=== PATIENT | female | born 1970 | race Caucasian/White ===

== ENCOUNTER 2019-05-21 18:17 | Emergency (ER) | payer SELFPAY ==
[~2019-05-21] VITALS: Ht 162.5 cm; Wt 68.0 kg
[2019-05-21] MEDS ORDERED: MEDROL DOSEPAK4 MG PO (20:42)
[2019-05-21] MEDS ORDERED: NAPROSYN500 MG PO (20:42)
[2019-05-21] MEDS ORDERED: METHOCARBAMOL500 M1 PO (20:42)
== END 2019-05-21 20:46 | disposition home or self-care (01) ==
LOC: ED 18:17
DX: S16.1XXA Strain of muscle, fascia and tendon at neck level, initial encounter (principal); S29.011A Strain of muscle and tendon of front wall of thorax, initial encounter; S46.912A Strain of unspecified muscle, fascia and tendon at shoulder and upper arm level, left arm, initial encounter; Z91.040 Latex allergy status; W18.39XA Other fall on same level, initial encounter; Y93.89 Activity, other specified; Y92.89 Other specified places as the place of occurrence of the external cause; Y99.8 Other external cause status

== ENCOUNTER 2019-06-19 18:06 | Inpatient (IN) | payer SELFPAY ==
[~2019-06-19] VITALS: Ht 165.1 cm; Wt 78.6 kg
[2019-06-19 18:06] VITALS: BP 114/79
[~2019-06-19 18:06] MED LIST: MEDROL DOSEPAK4 MG PO; METHOCARBAMOL500 M1 PO; NAPROSYN500 MG PO
[2019-06-19 18:52] LABS: BASO # 0.1 10*3/uL (0.0-0.1); BASO % 0.6 % (0.0-1.0); EOS # 0.2 10*3/uL (0.0-0.4); EOS % 1.8 % (1.0-4.0); HEMATOCRIT 37.8 % (37.0-47.0); HEMOGLOBIN 12.7 g/dl (12.0-16.0); LYMPH % 15.6 % (27.0-41.0); MEAN CELL VOLUME 90.6 fl (81.0-99.0); MEAN CORPUSCULAR HGB 30.5 pg (27.0-31.0); MEAN CORPUSCULAR HGB CONC 33.6 g/dl (33.0-37.0); MEAN PLATELET VOLUME 10.4 fl (9.6-12.3); MONO # 1.2 10*3/uL (0.1-1.0); NEUT # 9.4 10*3/uL (2.3-7.9); NEUT % 72.7 % (47.0-73.0); PLATELET COUNT AUTOMATED 321 10*3/uL (130-400); RED BLOOD COUNT 4.17 10*6/uL (4.10-5.10); RED CELL DISTRI WIDTH 12.8 % (0-14.5)
[2019-06-19 19:02] LABS: BILIRUBIN NEGATIVE (NEGATIVE); BLOOD NEGATIVE (NEGATIVE); CLARITY CLEAR (CLEAR); COLOR YELLOW (YELLOW); GLUCOSE NEGATIVE (NEGATIVE); KETONE NEGATIVE (NEGATIVE); LEUKO ESTERASE NEGATIVE (NEGATIVE); NITRITE NEGATIVE (NEGATIVE); PH 7.5 (5.0-9.0); UROBILINOGEN 0.2 E.U./dl (0.2-1.0)
--- NOTE | 2019-06-19 19:03 | NUR ---
PT MEDICATED PER EMAR. CONT PULSE OX IN PLACE.
[2019-06-19 19:05] LABS: ACT PARTIAL THROMBO TIME 27.3 SECONDS (20.0-32.1); INTERNATIONAL NORM RATIO 0.9 (2.0-3.5)
[2019-06-19 19:07] LABS: ALKALINE PHOSPHATASE 49 U/L (45-117); BUN 8 mg/dl (7-24); CHLORIDE 113 mmol/L (98-107); CREATININE 0.81 mg/dL (0.55-1.02); LIPASE 64 U/L (73-393); POTASSIUM 3.8 mmol/L (3.5-5.1); SGOT/AST 10 IU/L (3-35); SGPT/ALT 17 U/L (12-78); SODIUM 141 mmol/L (136-145); TOTAL PROTEIN 6.7 gm/dL (6.4-8.2)
[2019-06-19 19:39] LABS: WBC 0-2 wbc/hpf (0-5)
[2019-06-19 23:48] VITALS: BP 117/80
[2019-06-20 01:00] VITALS: BP 117/82
--- NOTE | 2019-06-20 01:00 | NUR ---
A 48, admitted to , under the services of LISA Bonner DO with a diagnosis of INTRACTABLE ABDOMINAL PAIN, DIVERTICULITIS. Chief complaint is PAIN. Patient arrived via bed from ER. Monitor applied. Initial assessment completed. Vital signs taken and recorded. LISA BONNER DO notified of admission to the unit. Orders received. See assessment for past medical history, medications and allergies. Patient and/or family oriented to unit. [facility] visitation policy reviewed. Clothing/patient valuable form completed. BETTE ROBERSON
--- NOTE | 2019-06-20 01:30 | NUR ---
RESTORIL GIVEN FOR COMPLAINT OF INSOMNIA. WILL MONITOR EFFECTIVENESS.
[2019-06-20 06:39] LABS: BASO # 0.1 10*3/uL (0.0-0.1); BASO % 0.7 % (0.0-1.0); EOS # 0.3 10*3/uL (0.0-0.4); EOS % 2.3 % (1.0-4.0); HEMATOCRIT 35.4 % (37.0-47.0); HEMOGLOBIN 11.8 g/dl (12.0-16.0); LYMPH # 2.3 10*3/uL (1.3-4.4); LYMPH % 19.4 % (27.0-41.0); MEAN CELL VOLUME 91.9 fl (81.0-99.0); MEAN CORPUSCULAR HGB 30.6 pg (27.0-31.0); MEAN CORPUSCULAR HGB CONC 33.3 g/dl (33.0-37.0); MEAN PLATELET VOLUME 10.5 fl (9.6-12.3); MONO # 1.3 10*3/uL (0.1-1.0); MONO % 10.4 % (3.0-9.0); NEUT # 8.1 10*3/uL (2.3-7.9); NEUT % 66.9 % (47.0-73.0); PLATELET COUNT AUTOMATED 285 10*3/uL (130-400); RED BLOOD COUNT 3.85 10*6/uL (4.10-5.10); RED CELL DISTRI WIDTH 12.9 % (0-14.5)
[2019-06-20 07:12] LABS: BUN 6 mg/dl (7-24); CHLORIDE 113 mmol/L (98-107); CHOLESTEROL 136 mg/dL (<200); CREATININE 0.72 mg/dL (0.55-1.02); HDL CHOLESTEROL 43 mg/dl (40-60); LDL CHOLESTEROL 80 mg/dL (9-159); PHOSPHOROUS 2.6 mg/dL (2.5-4.9); POTASSIUM 3.7 mmol/L (3.5-5.1); SODIUM 142 mmol/L (136-145); TRIGLYCERIDES 66 mg/dl (<150); VLDL CHOLESTEROL 13 mg/dL (6-40)
[2019-06-20 08:00] VITALS: BP 104/70
--- NOTE | 2019-06-20 08:16 | NUR ---
PT STATES THAT SHE IS HAVING ABDOMINAL PAIN RATING TI A 10/10 AND IS REQUESTING SOMETHING FOR THE PAIN. PT IS GIVEN PO NORCO AT THIS TIME. WILL CONTINUE TO MONITOR THE PATIENT, CALL LIGHT WITHIN REACH
[2019-06-20 08:45] LABS: VITAMIN D, 25-HYDROXY 21.9 ng/mL (30-100)
--- NOTE | 2019-06-20 09:00 | NUR ---
Mortar Worker in to talk to patient. Patient states lives at home with alone. There are no steps in the home. Physician: none Pharmacy: none Home health services: none Patient's level of ADLs: INDEPENDENT Patient has working utilities: all working DME: none Follow-up physician's appointment after d/c: will be made by hospitalist nurse director upon discharge with doctor of patient's choice Does patient want to access PORTAL?: no Discharge plan discussed with patient, she lives at home, she states she is independent in adls and ambulation, she will return home when medicallly stable and denies any home needs. JYOTI GAMA
--- NOTE | 2019-06-20 09:33 | NUR ---
PT RE-EVALUATED AT THIS TIME AND IS SLEEPING. WILL CONTINUE TO MONITOR THE PATIENT. CALL LIGHT WITHIN REACH
[2019-06-20 12:00] VITALS: BP 103/62
--- NOTE | 2019-06-20 12:26 | NUR ---
DR. BRUCE IN TO SEE THE PATIENT. STATES HE WANTS HER STARTED ON FLUIDS, WILL PUT IT IN PER DR MENDOZA.
--- NOTE | 2019-06-20 12:36 | NUR ---
PT STATES THE SHE IS HAVING ABDOMINAL PAIN IN LLQ AND IS REQUESTING SOMETHING FOR THE PAIN AND SHE IS ALSO FEELING SICK TO HER STOMACH. SHE RATES THE PAIN A 10/10. PO ZOFRAN AND NORCO ARE GIVEN AT THIS TIME. WILL CONITNUE TO MONITOR THE PATIENT. CAKLL LIGHT WITHIN REACH
--- NOTE | 2019-06-20 14:10 | NUR ---
RE-EVALUATED THE PATIENT AT THE TIME AND SHE STATES THAT HER HEADACHE IS BETTER NOW ALONG WITH HER ARM/SHOULDER PAIN.
--- NOTE | 2019-06-20 14:15 | NUR ---
CALLED DR TOLENTINO PER PT REQUEST OF NASAL SPRAY. HE STATES HE IS GOING TO PUT IN ORDERS.
--- NOTE | 2019-06-20 14:50 | NUR ---
Shift chart check completed.
--- NOTE | 2019-06-20 18:45 | NUR ---
PRN NORCO GIVEN FOR ABDOMINAL PAIN FOR A LEVEL OF 6/10. WILL REASSESS EFFECTIVENESS.
--- NOTE | 2019-06-20 19:45 | NUR ---
PRN NORCO WAS EFFECTIVE. PT HAS NO SIGNS OF DISTRESS NOTED.
[2019-06-20 20:00] VITALS: BP 114/73
--- NOTE | 2019-06-20 22:59 | NUR ---
24 HR chart check completed.
[2019-06-21] VITALS: BP 105/74
--- NOTE | 2019-06-21 01:48 | NUR ---
PRN NORCO GIVEN FOR PT COMPLAINTS OF ABDOMINAL PAIN RATING IT 6/10. CALL LIGHT WITHIN REACH, WILL MONITOR
--- NOTE | 2019-06-21 02:50 | NUR ---
PRN MEDICATINO APPEARS EFFECTIVE, PT SLEEPING
--- NOTE | 2019-06-21 02:53 | NUR ---
24 HR chart check completed.
[2019-06-21 08:00] VITALS: BP 94/72
--- NOTE | 2019-06-21 09:00 | NUR ---
case management visits with patient she states she will return home when medically stable and denies any home needs, case managment will follow
[2019-06-21 12:00] VITALS: BP 96/61
[2019-06-21 16:00] VITALS: BP 105/79
[2019-06-21 20:00] VITALS: BP 109/65
--- NOTE | 2019-06-21 20:08 | NUR ---
PT MEDICATED WITH PRN NORCO FOR C/O HEADACHE RATED A 10/10. WILL CONTINUE TO MONITOR.
[2019-06-22] VITALS: BP 121/66
--- NOTE | 2019-06-22 00:14 | NUR ---
PT MEDICATED WITH PRN ZOFRAN FOR C/O NAUSEA. WILL MONITOR FOR EFFECTIVENESS.
[2019-06-22 08:00] VITALS: BP 116/75
--- NOTE | 2019-06-22 08:30 | NUR ---
PT DENIES PAIN AND STATES SHE FEELS MUCH BETTER AND IS TOLERATING LIQUID DIET.
[2019-06-22] MEDS ORDERED: FLAGYL250 MG PO (08:58)
[2019-06-22] MEDS ORDERED: CIPRO250 MG PO (08:58)
--- NOTE | 2019-06-22 10:32 | NUR ---
PT DISCHARGED HOME AT THIS TIME. FERNANDO AYOUB. PT REFUSED WHEELCHAIR TRANSPORT. VSS.
== END 2019-06-22 10:32 | disposition home or self-care (01) | DRG 392 ==
LOC: ED 18:06 → 5E 23:18 → EDHOLD 23:18 → 4E 06-20 00:34 → 5E 06-20 15:49
PROVIDERS: Internal Medicine; Nurse Practitioner Family; ADMIT Family Medicine
DX: K57.32 Diverticulitis of large intestine without perforation or abscess without bleeding (principal); E44.0 Moderate protein-calorie malnutrition; E87.8 Other disorders of electrolyte and fluid balance, not elsewhere classified; E55.9 Vitamin D deficiency, unspecified; E66.3 Overweight; R73.9 Hyperglycemia, unspecified; Z83.79 Family history of other diseases of the digestive system; Z81.2 Family history of tobacco abuse and dependence; Z68.26 Body mass index [BMI] 26.0-26.9, adult

== ENCOUNTER → 2019-07-05 | Outpatient (CLI) | payer SELFPAY ==
[~2019-07-05] MED LIST changes: +CIPRO250 MG PO; +FLAGYL250 MG PO
== END | disposition home or self-care (01) ==
LOC: RESCLI 01:36
DX: K57.90 Diverticulosis of intestine, part unspecified, without perforation or abscess without bleeding (principal); E55.9 Vitamin D deficiency, unspecified; R73.09 Other abnormal glucose

== ENCOUNTER 2020-01-20 17:59 | Observation (INO) | payer SELFPAY ==
[~2020-01-20] VITALS: Ht 165.1 cm; Wt 81.8 kg
[2020-01-20 18:34] VITALS: BP 125/84
[2020-01-20 19:37] LABS: CLARITY CLEAR (CLEAR); COLOR YELLOW (YELLOW)
[2020-01-20 19:38] LABS: BILIRUBIN NEGATIVE (NEGATIVE); BLOOD NEGATIVE (NEGATIVE); GLUCOSE NEGATIVE (NEGATIVE); KETONE NEGATIVE (NEGATIVE); LEUKO ESTERASE NEGATIVE (NEGATIVE); NITRITE NEGATIVE (NEGATIVE); SPECIFIC GRAVITY 1.015 (1.005-1.030); UROBILINOGEN 0.2 E.U./dl (0.2-1.0)
[2020-01-20 19:46] LABS: EPITHELIAL CELLS 41-50; RBC 0-2 rbc/hpf (0-2); WBC 0-2 wbc/hpf (0-5)
[2020-01-20 19:46] LABS: BASO # 0.1 10*3/uL (0.0-0.1); BASO % 0.5 % (0.0-1.0); EOS # 0.2 10*3/uL (0.0-0.4); EOS % 1.8 % (1.0-4.0); HEMATOCRIT 38.3 % (37.0-47.0); LYMPH # 2.1 10*3/uL (1.3-4.4); MEAN CELL VOLUME 90.3 fl (81.0-99.0); MEAN CORPUSCULAR HGB 30.4 pg (27.0-31.0); MEAN CORPUSCULAR HGB CONC 33.7 g/dl (33.0-37.0); MEAN PLATELET VOLUME 10.1 fl (9.6-12.3); MONO # 1.1 10*3/uL (0.1-1.0); MONO % 8.8 % (3.0-9.0); NEUT # 8.8 10*3/uL (2.3-7.9); NEUT % 71.6 % (47.0-73.0); PLATELET COUNT AUTOMATED 315 10*3/uL (130-400); RED BLOOD COUNT 4.24 10*6/uL (4.10-5.10); RED CELL DISTRI WIDTH 13.1 % (0-14.5); WHITE BLOOD COUNT 12.3 10*3/uL (4.8-10.8)
[2020-01-20 20:02] LABS: ALBUMIN 3.2 gm/dl (3.1-4.5); ALKALINE PHOSPHATASE 58 U/L (45-117); BUN 9 mg/dl (7-24); CHLORIDE 110 mmol/L (98-107); CREATININE 0.83 mg/dL (0.55-1.02); LIPASE 88 U/L (73-393); POTASSIUM 3.8 mmol/L (3.5-5.1); SGOT/AST 12 IU/L (3-35); SGPT/ALT 20 U/L (12-78); SODIUM 139 mmol/L (136-145); TOTAL PROTEIN 6.8 gm/dL (6.4-8.2)
[2020-01-20 21:22] VITALS: BP 136/52
[2020-01-20 23:55] VITALS: BP 116/62
[2020-01-21 00:15] VITALS: BP 123/94
[2020-01-21] MEDS ORDERED: VITAMIN D325 MCG PO (00:59)
[2020-01-21 08:00] VITALS: BP 110/76
[2020-01-21 12:00] VITALS: BP 118/74
[2020-01-21 16:00] VITALS: BP 116/77
[2020-01-21 20:00] VITALS: BP 122/74
[2020-01-22] VITALS: BP 126/75
[2020-01-22 07:35] LABS: BASO # 0.1 10*3/uL (0.0-0.1); BASO % 0.8 % (0.0-1.0); EOS # 0.3 10*3/uL (0.0-0.4); EOS % 3.6 % (1.0-4.0); HEMATOCRIT 38.4 % (37.0-47.0); LYMPH # 1.9 10*3/uL (1.3-4.4); LYMPH % 22.2 % (27.0-41.0); MEAN CELL VOLUME 91.2 fl (81.0-99.0); MEAN CORPUSCULAR HGB 30.2 pg (27.0-31.0); MEAN CORPUSCULAR HGB CONC 33.1 g/dl (33.0-37.0); MEAN PLATELET VOLUME 10.1 fl (9.6-12.3); MONO # 0.9 10*3/uL (0.1-1.0); MONO % 10.4 % (3.0-9.0); NEUT # 5.5 10*3/uL (2.3-7.9); NEUT % 62.8 % (47.0-73.0); PLATELET COUNT AUTOMATED 297 10*3/uL (130-400); RED BLOOD COUNT 4.21 10*6/uL (4.10-5.10); RED CELL DISTRI WIDTH 12.9 % (0-14.5); WHITE BLOOD COUNT 8.7 10*3/uL (4.8-10.8)
[2020-01-22 08:00] VITALS: BP 122/82
[2020-01-22 08:08] LABS: BUN 7 mg/dl (7-24); CHLORIDE 112 mmol/L (98-107); CREATININE 0.65 mg/dL (0.55-1.02); POTASSIUM 3.7 mmol/L (3.5-5.1); SODIUM 142 mmol/L (136-145)
[2020-01-22 12:00] VITALS: BP 126/78
[2020-01-22] MEDS ORDERED: CIPRO500 MG PO (12:08)
[2020-01-22] MEDS ORDERED: FLAGYL500 MG PO (12:08)
== END 2020-01-22 12:23 | disposition home or self-care (01) ==
LOC: ED 17:59 → EDHOLD 23:29 → 5E 23:42
PROVIDERS: Nurse Practitioner Family; Student in an Organized Health Care Education/Training Program; ADMIT Internal Medicine
DX: K57.92 Diverticulitis of intestine, part unspecified, without perforation or abscess without bleeding (principal); D72.829 Elevated white blood cell count, unspecified; R00.1 Bradycardia, unspecified; E87.8 Other disorders of electrolyte and fluid balance, not elsewhere classified; R73.9 Hyperglycemia, unspecified; E66.9 Obesity, unspecified; E55.9 Vitamin D deficiency, unspecified

== ENCOUNTER 2020-10-26 12:09 | Emergency (ER) | payer SELFPAY ==
[~2020-10-26] VITALS: Ht 162.5 cm; Wt 74.8 kg
[~2020-10-26 12:09] MED LIST changes: +CIPRO500 MG PO; +FLAGYL500 MG PO; +VITAMIN D325 MCG PO
[2020-10-26 13:37] LABS: BASO # 0.1 10*3/uL (0.0-0.1); BASO % 0.5 % (0.0-1.0); EOS # 0.1 10*3/uL (0.0-0.4); EOS % 0.6 % (1.0-4.0); HEMATOCRIT 38.5 % (37.0-47.0); LYMPH # 2.2 10*3/uL (1.3-4.4); LYMPH % 15.8 % (27.0-41.0); MEAN CELL VOLUME 90.2 fl (81.0-99.0); MEAN CORPUSCULAR HGB 30.7 pg (27.0-31.0); MEAN PLATELET VOLUME 9.9 fl (9.6-12.3); MONO # 1.4 10*3/uL (0.1-1.0); MONO % 10.3 % (3.0-9.0); NEUT # 9.9 10*3/uL (2.3-7.9); NEUT % 72.6 % (47.0-73.0); PLATELET COUNT AUTOMATED 289 10*3/uL (130-400); RED BLOOD COUNT 4.27 10*6/uL (4.10-5.10); WHITE BLOOD COUNT 13.7 10*3/uL (4.8-10.8)
[2020-10-26 13:51] LABS: ALBUMIN 3.2 gm/dl (3.1-4.5); ALKALINE PHOSPHATASE 54 U/L (45-117); BUN 5 mg/dl (7-24); CHLORIDE 108 mmol/L (98-107); CREATININE 0.65 mg/dL (0.55-1.02); LIPASE 53 U/L (73-393); POTASSIUM 3.3 mmol/L (3.5-5.1); SGOT/AST 13 IU/L (3-35); SGPT/ALT 21 U/L (12-78); SODIUM 139 mmol/L (136-145); TOTAL PROTEIN 6.7 gm/dL (6.4-8.2)
[2020-10-26] MEDS ORDERED: FLAGYL500 MG PO (16:02)
[2020-10-26] MEDS ORDERED: CIPRO500 MG PO (16:02)
[2020-10-26 16:42] LABS: BILIRUBIN Negative (Negative); BLOOD Negative (Negative); CLARITY Clear (Clear); COLOR Yellow (Yellow); GLUCOSE Negative (Negative); KETONE Negative (Negative); LEUKO ESTERASE Negative (Negative); NITRITE Negative (Negative); SPECIFIC GRAVITY >= 1.030 (1.001-1.030); UROBILINOGEN 0.2 E.U./dl (0.0-1.0)
[2020-10-26 16:55] LABS: WBC 0-2 wbc/hpf (0-5)
== END 2020-10-26 18:42 | disposition home or self-care (01) ==
LOC: ED 12:09
PROVIDERS: Physician Assistant
DX: K57.32 Diverticulitis of large intestine without perforation or abscess without bleeding (principal); Z79.899 Other long term (current) drug therapy; Z98.890 Other specified postprocedural states

== ENCOUNTER 2021-12-26 05:04 | Emergency (ER) | payer BC ==
[~2021-12-26] VITALS: Ht 165.1 cm; Wt 79.8 kg
[2021-12-26] MEDS ORDERED: METHOCARBAMOL750 M1 PO (05:24)
[2021-12-26] MEDS ORDERED: NAPROXEN250 MG PO (05:24)
== END 2021-12-26 05:41 | disposition home or self-care (01) ==
LOC: ED 05:04
DX: S39.012A Strain of muscle, fascia and tendon of lower back, initial encounter (principal); Z79.899 Other long term (current) drug therapy; Z98.890 Other specified postprocedural states; X50.9XXA Other and unspecified overexertion or strenuous movements or postures, initial encounter; Y93.89 Activity, other specified; Y92.89 Other specified places as the place of occurrence of the external cause; Y99.8 Other external cause status

== ENCOUNTER → 2022-07-28 | Outpatient (CLI) | payer SELFPAY ==
[~2022-07-28] MED LIST changes: +METHOCARBAMOL750 M1 PO; +NAPROXEN250 MG PO
[2022-07-28 10:00] LABS: BASO # 0.2 10*3/uL (0.0-0.1); BASO % 1.3 % (0.0-1.0); BILIRUBIN Negative (Negative); BLOOD Negative (Negative); CLARITY Cloudy (Clear); COLOR Dark Yellow (Yellow); EOS # 0.5 10*3/uL (0.0-0.4); GLUCOSE Negative (Negative); HEMATOCRIT 39.1 % (37.0-47.0); KETONE Negative (Negative); LEUKO ESTERASE Negative (Negative); LYMPH # 3.5 10*3/uL (1.3-4.4); LYMPH % 30.4 % (27.0-41.0); MEAN CELL VOLUME 89.7 fl (81.0-99.0); MEAN CORPUSCULAR HGB CONC 33.5 g/dl (33.0-37.0); MEAN PLATELET VOLUME 10.2 fl (9.6-12.3); MONO # 0.9 10*3/uL (0.1-1.0); MONO % 8.2 % (3.0-9.0); NEUT # 6.3 10*3/uL (2.3-7.9); NEUT % 55.8 % (47.0-73.0); NITRITE Negative (Negative); PLATELET COUNT AUTOMATED 406 10*3/uL (130-400); RED BLOOD COUNT 4.36 10*6/uL (4.10-5.10); RED CELL DISTRI WIDTH 13.3 % (0-14.5); RETICULOCYTE % 1.18 % (0.50-2.50); SPECIFIC GRAVITY 1.025 (1.001-1.030); WHITE BLOOD COUNT 11.4 10*3/uL (4.8-10.8)
[2022-07-28 10:27] LABS: EPITHELIAL CELLS TNTC
[2022-07-28 10:28] LABS: BACTERIA 2+; RBC 0-2 rbc/hpf (0-2)
[2022-07-28 10:42] LABS: ALKALINE PHOSPHATASE 53 U/L (46-116); BUN 8 mg/dl (9-23); CHLORIDE 103 mmol/L (98-107); CHOLESTEROL 202 mg/dL (<200); GAMMA GLUTAMYL TRANSPEPTIDASE 13 U/L (0-73); LDL CHOLESTEROL 120 mg/dL (9-159); POTASSIUM 3.5 mmol/L (3.4-5.1); SGPT/ALT 21 U/L (10-49); T3 UPTAKE 19.2 % (22.4-36.7); THYROID STIM HORMONE (HS) 15.437 uIU/ml (0.550-4.780); THYROXINE (T4) TOTAL 5.6 ug/dl (4.5-10.9); TOTAL PROTEIN 6.9 gm/dL (6.0-8.0); TRIGLYCERIDES 87 mg/dl (<150); URIC ACID 3.8 mg/dL (3.1-7.8); VITAMIN D, 25-HYDROXY 22.3 ng/mL (30-100)
[2022-07-29 15:07] LABS: ANTI-DSDNA ANTIBODIES 5 IU/mL (0-9)
== END | disposition home or self-care (01) ==
LOC: LAB 08:58
PROVIDERS: ATTEND Family Medicine
DX: M17.12 Unilateral primary osteoarthritis, left knee (principal); R79.89 Other specified abnormal findings of blood chemistry; R53.83 Other fatigue; E78.5 Hyperlipidemia, unspecified; E55.9 Vitamin D deficiency, unspecified

== ENCOUNTER 2022-08-28 15:21 | Emergency (ER) | payer SELFPAY ==
[~2022-08-28] VITALS: Ht 157.4 cm; Wt 81.6 kg
[2022-08-28 16:24] LABS: BILIRUBIN Negative (Negative); BLOOD 3+ (Negative); CLARITY Clear (Clear); COLOR Yellow (Yellow); GLUCOSE Negative (Negative); KETONE Negative (Negative); LEUKO ESTERASE 1+ (Negative); NITRITE Negative (Negative); PH 5.5 (4.5-8.0); UROBILINOGEN 0.2 E.U./dl (0.0-1.0)
[2022-08-28 16:24] LABS: BASO # 0.1 10*3/uL (0.0-0.1); BASO % 1.1 % (0.0-1.0); EOS # 0.4 10*3/uL (0.0-0.4); EOS % 5.4 % (1.0-4.0); HEMATOCRIT 39.6 % (37.0-47.0); LYMPH # 3.3 10*3/uL (1.3-4.4); LYMPH % 43.9 % (27.0-41.0); MEAN CELL VOLUME 91.2 fl (81.0-99.0); MEAN CORPUSCULAR HGB 30.9 pg (27.0-31.0); MEAN CORPUSCULAR HGB CONC 33.8 g/dl (33.0-37.0); MEAN PLATELET VOLUME 9.7 fl (9.6-12.3); MONO # 0.8 10*3/uL (0.1-1.0); MONO % 9.9 % (3.0-9.0); NEUT % 39.6 % (47.0-73.0); PLATELET COUNT AUTOMATED 462 10*3/uL (130-400); RED BLOOD COUNT 4.34 10*6/uL (4.10-5.10); RED CELL DISTRI WIDTH 12.8 % (0-14.5); WHITE BLOOD COUNT 7.6 10*3/uL (4.8-10.8)
[2022-08-28 16:36] LABS: BACTERIA 2+; RBC 16-20 rbc/hpf (0-2)
[2022-08-28 16:45] LABS: ALKALINE PHOSPHATASE 50 U/L (46-116); BUN 8 mg/dl (9-23); CHLORIDE 107 mmol/L (98-107); POTASSIUM 4.3 mmol/L (3.4-5.1); SGPT/ALT 12 U/L (10-49); TOTAL PROTEIN 6.9 gm/dL (6.0-8.0)
[2022-08-28] MEDS ORDERED: OMNICEF300 MG PO (18:14)
== END 2022-08-28 18:24 | disposition home or self-care (01) ==
LOC: ED 15:21
PROVIDERS: Student in an Organized Health Care Education/Training Program
DX: N39.0 Urinary tract infection, site not specified (principal); Z98.890 Other specified postprocedural states

== ENCOUNTER 2023-09-28 18:21 | Emergency (ER) | payer SELFPAY ==
[~2023-09-28] VITALS: Ht 162.5 cm; Wt 81.6 kg
[~2023-09-28 18:21] MED LIST changes: +OMNICEF300 MG PO
[2023-09-28] MEDS ORDERED: ACETAMINOPHEN 325 MG TAB PO ONE (18:45)
== END 2023-09-28 20:14 | disposition home or self-care (01) ==
LOC: ED 18:21
DX: S86.911A Strain of unspecified muscle(s) and tendon(s) at lower leg level, right leg, initial encounter (principal); Z98.890 Other specified postprocedural states; X58.XXXA Exposure to other specified factors, initial encounter; Y93.89 Activity, other specified; Y92.89 Other specified places as the place of occurrence of the external cause; Y99.0 Civilian activity done for income or pay